=== PATIENT | male | born 1995 | race Caucasian/White ===

== ENCOUNTER 2019-08-18 01:25 | Emergency (ER) | payer MEDICAID ==
[~2019-08-18] VITALS: Ht 170.2 cm; Wt 54.5 kg
[2019-08-18] MEDS ORDERED: SEIZURE MEDS (01:36)
[2019-08-18 01:55] LABS: ABSOLUTE BASOPHILS 0.1 thou/uL (0.0-0.2); ABSOLUTE EOSINOPHILS 0.1 thou/uL (0.0-0.7); ABSOLUTE LYMPHOCYTES 2.4 thou/uL (0.8-5.3); ABSOLUTE MONOCYTES 0.5 thou/uL (0.0-1.2); ABSOLUTE NEUTROPHILS 4.7 thou/uL (1.6-8.1); BASOPHILS 1.1 %; EOSINOPHILS 1.7 %; HEMOGLOBIN 15.5 gm/dL (14.0-18.0); LYMPHOCYTES 30.5 %; MCH 27.6 pg (26.0-34.0); MCHC 35.3 g/dL (28.0-37.0); MCV 78.2 fL (80.0-100.0); MONOCYTES 6.9 %; MPV 7.1 fl. (7.2-11.1); NUCLEATED RBCS 0 /100WBC; PLATELET COUNT* 339 thou/uL (150-400); POLYS 59.8 %; RBC 5.63 mil/uL (4.50-6.00); RDW-CV 12.2 % (10.5-14.5); WBC 7.9 thou/uL (4.0-11.0)
[2019-08-18 01:59] LABS: CALCIUM 9.9 mg/dL (8.5-10.1); POTASSIUM 4.1 mmol/L (3.5-5.1)
[2019-08-18 02:03] LABS: TOTAL BILIRUBIN 0.3 mg/dL (<0.1-1.0); TOTAL PROTEIN 7.5 g/dL (6.4-8.2)
[2019-08-18 02:06] LABS: SALICYLATE 3.1 mg/dL (2.8-20.0)
[2019-08-18 02:07] LABS: ACETAMINOPHEN < 2 ug/mL (10-30); ALCOHOL < 10 mg/dL (<10)
[2019-08-18] MEDS ORDERED: KEPPRA 500 MG500 MG PO (02:29)
[2019-08-18 03:07] VITALS: BP 127/81
== END 2019-08-18 03:16 | disposition home or self-care (01) ==
LOC: M.ERS 01:25
PROVIDERS: Emergency Medicine
DX: R56.9 Unspecified convulsions (principal)